=== PATIENT | female | born 1955 | race Caucasian/White ===

== ENCOUNTER → 2016-08-15 | Outpatient (CLI) | payer OTHER ==
[~2016-08-15] MED LIST: ADVAIR 100-501 EACH INH; AMITRIPTYLINE H25 M2 PO; BYSTOLIC10 MG PO; ERGOCALCIF50000 UNIT PO; FLEXERIL PO; MOBIC7.5 MG PO; NORCO 10-325 T1 EACH PO; NORVASC10 MG PO; OCUVITE EYE +1 EACH PO; PRAVACHOL20 MG PO; PROAIR HFA8.5 GM INH; SAVELLA50 MG PO; SINGULAIR 10 MG10 M1 PO; TRAMADOL 50 MG50 MG PO; UNICOMPLEX M TA1 TA1 PO; VESICARE10 M1 PO; XOPENEX HF1 UDINHALE IH
== END ==
LOC: RAD 13:57
DX: M25.552 Pain in left hip (principal)

== ENCOUNTER → 2016-10-12 | Outpatient (CLI) | payer OTHER | LOC: HYPER 07:17 | DX: I89.0 Lymphedema, not elsewhere classified (principal); I10 Essential (primary) hypertension; E78.00 Pure hypercholesterolemia, unspecified; M19.90 Unspecified osteoarthritis, unspecified site; M81.0 Age-related osteoporosis without current pathological fracture; Z86.73 Personal history of transient ischemic attack (TIA), and cerebral infarction without residual deficits; G43.909 Migraine, unspecified, not intractable, without status migrainosus; J45.909 Unspecified asthma, uncomplicated; Z96.653 Presence of artificial knee joint, bilateral ==

== ENCOUNTER → 2016-10-19 | Outpatient (CLI) | payer OTHER | LOC: HYPER 07:04 | DX: I89.0 Lymphedema, not elsewhere classified (principal); I10 Essential (primary) hypertension; E78.00 Pure hypercholesterolemia, unspecified; M19.90 Unspecified osteoarthritis, unspecified site; J45.909 Unspecified asthma, uncomplicated; M81.0 Age-related osteoporosis without current pathological fracture; G43.909 Migraine, unspecified, not intractable, without status migrainosus; Z86.73 Personal history of transient ischemic attack (TIA), and cerebral infarction without residual deficits; Z96.653 Presence of artificial knee joint, bilateral ==

== ENCOUNTER → 2016-10-23 | Outpatient (CLI) | payer OTHER ==
--- NOTE | ~2016-10-23 | EKG ---
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
[2016-10-23 10:29] LABS: ABSOLUTE NEUTROPHILS 4.8 thou/uL (1.4-8.2); BASOPHILS 1.4 % (0.0-2.0); HEMOGLOBIN 13.4 gm/dL (12.0-15.0); LYMPHOCYTES 22.1 % (24.0-44.0); MCH 31.2 pg (26.0-34.0); MCHC 33.5 g/dL (28.0-37.0); MCV 93.1 fL (80.0-100.0); MONOCYTES 6.9 % (1.0-8.0); PLATELET COUNT 254 thou/uL (150-400); POLYS 62.6 % (36.0-66.0); RDW 14.9 % (10.5-14.5); WBC 7.7 thou/uL (4.0-11.0)
[2016-10-23 10:31] LABS: MANUAL DIFF NO
[2016-10-23 10:48] LABS: ALBUMIN 3.6 g/dL (3.4-5.0); CALCIUM 9.4 mg/dL (8.5-10.1); CREATININE 1.1 mg/dL (0.6-1.0); TOTAL BILIRUBIN 0.8 mg/dL (<0.1-1.0); TOTAL PROTEIN 7.3 g/dL (6.4-8.2)
== END ==
LOC: CV 07:34
PROVIDERS: Obstetrics & Gynecology Gynecologic Oncology
DX: J18.9 Pneumonia, unspecified organism (principal); R19.00 Intra-abdominal and pelvic swelling, mass and lump, unspecified site; M81.0 Age-related osteoporosis without current pathological fracture

== ENCOUNTER → 2016-10-26 | Outpatient (CLI) | payer OTHER | LOC: HYPER 07:06 | DX: I89.0 Lymphedema, not elsewhere classified (principal); I10 Essential (primary) hypertension; E78.00 Pure hypercholesterolemia, unspecified; M19.90 Unspecified osteoarthritis, unspecified site; J45.909 Unspecified asthma, uncomplicated; M81.0 Age-related osteoporosis without current pathological fracture; G43.909 Migraine, unspecified, not intractable, without status migrainosus; Z86.73 Personal history of transient ischemic attack (TIA), and cerebral infarction without residual deficits ==

== ENCOUNTER → 2016-11-16 | Outpatient (CLI) | payer OTHER | LOC: HYPER 07:12 | DX: I89.0 Lymphedema, not elsewhere classified (principal); R60.9 Edema, unspecified; I10 Essential (primary) hypertension; E78.00 Pure hypercholesterolemia, unspecified; M19.90 Unspecified osteoarthritis, unspecified site; J45.909 Unspecified asthma, uncomplicated; M81.0 Age-related osteoporosis without current pathological fracture; G43.909 Migraine, unspecified, not intractable, without status migrainosus; Z86.73 Personal history of transient ischemic attack (TIA), and cerebral infarction without residual deficits; Z96.653 Presence of artificial knee joint, bilateral ==

== ENCOUNTER → 2016-12-21 | Outpatient (CLI) | payer OTHER | LOC: HYPER 07:10 | DX: I89.0 Lymphedema, not elsewhere classified (principal); R60.9 Edema, unspecified; I10 Essential (primary) hypertension; E78.00 Pure hypercholesterolemia, unspecified; M19.90 Unspecified osteoarthritis, unspecified site; J45.909 Unspecified asthma, uncomplicated; Z86.73 Personal history of transient ischemic attack (TIA), and cerebral infarction without residual deficits ==

== ENCOUNTER → 2016-12-25 | Outpatient (CLI) | payer OTHER ==
--- NOTE | ~2016-12-25 | EKG ---
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 : 1955 Requested By: Avelino Sanchez Order Number: [id number] MD: Bladimir Morales Measurements Intervals [place] Rate: 56 P: 47 ID: 189 QRS: 51 QRSD: 132 T: 42 QT: 514 QTc: 497 Interpretive Statements Sinus rhythm IVCD, consider atypical RBBB Compared to ECG 10/23/2016 09:33:45 No significant changes Electronically Signed On 12-26-2016 8:41:26 CDT by Bladimir Morales [email or web address] <ELECTRONICALLY SIGNED> By: Bladimir Morales MD, [facility] 12/26/16 0841 1235 1235 Bladimir Morales MD, [facility] /EPI
[2016-12-25 12:13] LABS: ABSOLUTE NEUTROPHILS 4.9 thou/uL (1.4-8.2); BASOPHILS 1.1 % (0.0-2.0); EOSINOPHILS 6.7 % (0.0-3.0); HEMATOCRIT 38.9 % (37.0-47.0); HEMOGLOBIN 13.3 gm/dL (12.0-15.0); LYMPHOCYTES 22.4 % (24.0-44.0); MCH 32.2 pg (26.0-34.0); MCHC 34.1 g/dL (28.0-37.0); MCV 94.3 fL (80.0-100.0); MONOCYTES 5.6 % (1.0-8.0); PLATELET COUNT 231 thou/uL (150-400); POLYS 64.2 % (36.0-66.0); RBC 4.12 mil/uL (4.20-5.00); RDW 14.4 % (10.5-14.5); WBC 7.6 thou/uL (4.0-11.0)
[2016-12-25 12:14] LABS: MANUAL DIFF NO
[2016-12-25 12:21] LABS: CALCIUM 9.5 mg/dL (8.5-10.1); POTASSIUM 4.2 mmol/L (3.5-5.1)
[2016-12-25 12:29] LABS: ALBUMIN 3.8 g/dL (3.4-5.0); TOTAL BILIRUBIN 0.7 mg/dL (<0.1-1.0); TOTAL PROTEIN 7.5 g/dL (6.4-8.2)
== END ==
LOC: RAD 11:17
PROVIDERS: Surgery
DX: I10 Essential (primary) hypertension (principal); E66.01 Morbid (severe) obesity due to excess calories

== ENCOUNTER → 2017-01-09 | Outpatient (CLI) | payer OTHER | LOC: HYPER 07:09 | DX: I89.0 Lymphedema, not elsewhere classified (principal); I10 Essential (primary) hypertension; E78.00 Pure hypercholesterolemia, unspecified; M19.90 Unspecified osteoarthritis, unspecified site; J45.909 Unspecified asthma, uncomplicated; M81.0 Age-related osteoporosis without current pathological fracture; G43.909 Migraine, unspecified, not intractable, without status migrainosus; Z86.73 Personal history of transient ischemic attack (TIA), and cerebral infarction without residual deficits; Z96.653 Presence of artificial knee joint, bilateral ==

== ENCOUNTER 2017-01-30 07:20 | Day surgery (SDC) | payer OTHER ==
[~2017-01-30] VITALS: Ht 172.7 cm; Wt 152.9 kg
--- NOTE | ~2017-01-30 | S ---
[facility] [place] [address] SURGICAL PATH RPT PROCEDURE Name: LATASHA ESPINO Room #: DEP [facility] M.R.#: [id number] Admission: 01/30/17 Date of : 59 Discharge: 01/31/17 Report #: [id number] Path Case #: [id number] PATHOLOGY REPORT COLLECTION DATE: 01/30/2017 RECEIVED DATE: 01/30/2017 SUBMITTING PHYS: Dr. Avelino Sanchez OTHER PHYS: Dr. Marvin Toribio SPECIMEN(S) RECEIVED: A.Scalp mass anterior crown B.Scalp mass posterior crown C.Sleeve gastrectomy * * * * * * * * * * * * FINAL DIAGNOSIS: A. 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 B. 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 C. Stomach, partial sleeve gastrectomy: - No significant diagnostic abnormality is present. (IUV:db; 02/01/2017) PATHOLOGIST: Leslie Leslie M.D. REPORT ELECTRONICALLY SIGNED BY: Leslie Leslie M.D. DATE/TIME: 02/01/2017 16:27 * * * * * * * * * * * * GROSS PATHOLOGY: A. The specimen is received in formalin labeled "Latasha Espino, scalp mass anterior crown". Received is a segment of white-sheehan, firm capsular tissue measuring 2.0 x 1.6 x 1.2 cm in greatest dimensions. The surgical margin is inked. Sectioning reveals waxy to slightly chalky cut surfaces throughout. The specimen is submitted representatively in cassette A1. B. The specimen is received in formalin labeled "Latasha Espino, scalp mass posterior crown". Received is a segment of white-sheehan, firm capsular tissue measuring 1.7 x 1.7 x 1.5 cm in greatest dimensions. The surgical margin is inked. Sectioning reveals white-sheehan, waxy to chalky cut surfaces throughout. The specimen is submitted representatively in cassette B1. C. The specimen is received in formalin, labeled "Latasha Espino, [address] [address] SURGICAL PATH RPT PROCEDURE Name: LATASHA ESPINO Room #: DEP [facility]..#: [id number] Admission: 01/30/17 Date of : 59 Discharge: 01/31/17 Report #: [id number] Path Case #: [id number] gastric sleeve". Received is a partial gastrectomy specimen with a stapled margin of resection measuring 24.8 x 7.9 x 3.7 cm in greatest dimensions. The serosal surface is pink-sheehan to pink-redman, smooth and glistening in appearance. Opening the specimen reveals a light sheehan to redman-sheehan, granular-appearing mucosa with normal architectural folds. Several possible polyps are present ranging in size from 0.1 2 1.1 cm in maximum dimensions. The specimen is submitted representatively in cassettes C1 through C3, to include architectural representative sections of the aforementioned polyps. (CAA; 01/31/2017) CLINICAL HISTORY: Morbid obesity, scalp mass 2 INITIAL CPT CODE(S): A; 31753 B; 94139 C; 04793 Professional services performed by [facility] at [facility] [address] [place] [address] Technical services performed by [facility] at [address] [place] [address], [address], [place] [address]. [facility] [address] [place] [address] PHONE: [phone] DIRECTOR: Darrin Frank M.D. * * * END OF REPORT * * *
--- NOTE | ~2017-01-30 | EKG ---
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 : 1955 Requested By: Thaddeus Hopper Order Number: [id number] MD: Bladimir Morales Measurements Intervals [place] Rate: 72 P: 57 TN: 194 QRS: 37 QRSD: 140 T: 30 QT: 485 QTc: 531 Interpretive Statements Sinus rhythm Nonspecific intraventricular conduction delay Compared to ECG 12/25/2016 12:35:48 No significant changes Electronically Signed On 01-30-2017 18:14:00 CDT by Bladimir Morales [email or web address] <ELECTRONICALLY SIGNED> By: Bladimir Morales MD, [facility] 01/30/17 1814 1200 1200 Bladimir Morales MD, [facility] /EPI
[~2017-01-30 07:20] MED LIST changes: +ADVAIR HFA 45MC1 AER INH; +BENADRYL25 MG PO; +CALCIUM 500 +1 EAC5 PO; +NEURONTIN 300300 M1 PO; +NEXIUM40 MG PO; +VENTOLIN HFA 1818 GM INH; +VITAMIN D-32000 UNIT PO
[2017-01-30 07:55] VITALS: BP 134/67
[2017-01-30 17:07] VITALS: BP 150/71
[2017-01-30 19:37] VITALS: BP 154/73
[2017-01-30 20:24] VITALS: BP 158/67
[2017-01-31 00:20] VITALS: BP 132/59
[2017-01-31 04:36] LABS: HEMATOCRIT 39.5 % (37.0-47.0); HEMOGLOBIN 13.1 gm/dL (12.0-15.0); MCH 31.8 pg (26.0-34.0); MCHC 33.3 g/dL (28.0-37.0); MCV 95.6 fL (80.0-100.0); PLATELET COUNT 254 thou/uL (150-400); RBC 4.13 mil/uL (4.20-5.00); RDW 14.2 % (10.5-14.5); WBC 11.5 thou/uL (4.0-11.0)
[2017-01-31 04:40] VITALS: BP 133/62
[2017-01-31 04:44] LABS: MANUAL DIFF YES
[2017-01-31 04:45] LABS: CALCIUM 8.7 mg/dL (8.5-10.1); CREATININE 0.9 mg/dL (0.6-1.0); POTASSIUM 4.1 mmol/L (3.5-5.1)
[2017-01-31 05:22] LABS: TOTAL CELL COUNT 100
[2017-01-31 05:23] LABS: LARGE PLATELETS FEW
[2017-01-31] MEDS ORDERED: HYDROCODONE-ACE15 ML PO (11:04)
[2017-01-31 12:46] VITALS: BP 133/62
== END 2017-01-31 14:01 | disposition home or self-care (01) ==
LOC: 5S 07:20 → OR 07:20 → TBA 07:20 → 5S 10:25 → GI 11:21 → EDSTATUS 15:39 → OR 15:42
PROVIDERS: Surgery
DX: E66.01 Morbid (severe) obesity due to excess calories (principal); D23.4 Other benign neoplasm of skin of scalp and neck; I10 Essential (primary) hypertension; M19.90 Unspecified osteoarthritis, unspecified site; I42.9 Cardiomyopathy, unspecified; M79.7 Fibromyalgia; Z68.27 Body mass index [BMI] 27.0-27.9, adult; Z88.8 Allergy status to other drugs, medicaments and biological substances; Z79.899 Other long term (current) drug therapy; Z98.890 Other specified postprocedural states
CPT/HCPCS: 10785; 50010; 50101; 50222; 50249; 50386; 50555; 50739; 50740; 50962; 51437; 52182; 52265; 53307; 53311; 54022; 54118; 55245; 56462; 56525; 56526; 56970; 57092; 62110; 62900; 70005

== ENCOUNTER → 2017-02-20 | Outpatient (CLI) | payer OTHER ==
[~2017-02-20] MED LIST changes: +HYDROCODONE-ACE15 ML PO
== END ==
LOC: HYPER 07:04
DX: I89.0 Lymphedema, not elsewhere classified (principal); R60.9 Edema, unspecified; I10 Essential (primary) hypertension; E78.00 Pure hypercholesterolemia, unspecified; M19.90 Unspecified osteoarthritis, unspecified site; J45.909 Unspecified asthma, uncomplicated

== ENCOUNTER → 2017-03-20 | Outpatient (CLI) | payer OTHER | LOC: HYPER 07:15 | DX: I89.0 Lymphedema, not elsewhere classified (principal); I10 Essential (primary) hypertension; E78.00 Pure hypercholesterolemia, unspecified; M19.90 Unspecified osteoarthritis, unspecified site; J45.909 Unspecified asthma, uncomplicated; M81.0 Age-related osteoporosis without current pathological fracture; Z86.73 Personal history of transient ischemic attack (TIA), and cerebral infarction without residual deficits; G43.909 Migraine, unspecified, not intractable, without status migrainosus; Z96.653 Presence of artificial knee joint, bilateral ==

== ENCOUNTER → 2017-05-01 | Outpatient (CLI) | payer OTHER | LOC: HYPER 07:21 | DX: I89.0 Lymphedema, not elsewhere classified (principal); R60.9 Edema, unspecified; E78.00 Pure hypercholesterolemia, unspecified; I10 Essential (primary) hypertension; M19.90 Unspecified osteoarthritis, unspecified site; J45.909 Unspecified asthma, uncomplicated; M81.0 Age-related osteoporosis without current pathological fracture; Z86.73 Personal history of transient ischemic attack (TIA), and cerebral infarction without residual deficits ==

== ENCOUNTER 2017-12-16 16:51 | Emergency (ER) | payer OTHER ==
[~2017-12-16] VITALS: Ht 170.2 cm; Wt 101.6 kg
--- NOTE | ~2017-12-16 | EKG ---
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
[2017-12-16 17:21] LABS: ABSOLUTE NEUTROPHILS 3.2 thou/uL (1.4-8.2); BASOPHILS 0.7 % (0.0-2.0); EOSINOPHILS 2.8 % (0.0-3.0); HEMATOCRIT 40.6 % (37.0-47.0); HEMOGLOBIN 13.9 gm/dL (12.0-15.0); LYMPHOCYTES 36.9 % (24.0-44.0); MCH 31.2 pg (26.0-34.0); MCHC 34.3 g/dL (28.0-37.0); MCV 90.8 fL (80.0-100.0); MONOCYTES 5.9 % (1.0-8.0); PLATELET COUNT 260 thou/uL (150-400); POLYS 53.7 % (36.0-66.0); RBC 4.47 mil/uL (4.20-5.00); RDW 12.7 % (10.5-14.5); WBC 5.9 thou/uL (4.0-11.0)
[2017-12-16 17:35] LABS: ANION GAP 15 mmol/L (7-16); BUN 15 mg/dL (7-18); CALCIUM 9.8 mg/dL (8.5-10.1); CHLORIDE 105 mmol/L (98-107); CO2 23 mmol/L (21-32); GLUCOSE 112 mg/dL (74-106); SODIUM 143 mmol/L (136-145)
[2017-12-16 17:43] LABS: TROPONIN-I < 0.04 ng/mL (<0.06)
[2017-12-16 17:59] LABS: BE(vivo) 2.2 mmol/L (-2 to +3); HCO3 19.9 mmol/L (22.0-26.0); sO2 99.3 % (92.0-98.0)
[2017-12-16 18:00] LABS: PCO2 17.7 mmHg (35.0-45.0); pH 7.669 (7.360-7.450)
== END 2017-12-16 19:03 | disposition home or self-care (01) ==
LOC: ER 16:51
PROVIDERS: Nurse Practitioner
DX: R06.00 Dyspnea, unspecified (principal); F41.9 Anxiety disorder, unspecified; R07.89 Other chest pain; J45.909 Unspecified asthma, uncomplicated; I63.9 Cerebral infarction, unspecified; I10 Essential (primary) hypertension; E78.00 Pure hypercholesterolemia, unspecified; I42.9 Cardiomyopathy, unspecified; K21.9 Gastro-esophageal reflux disease without esophagitis; M19.90 Unspecified osteoarthritis, unspecified site; F17.210 Nicotine dependence, cigarettes, uncomplicated; Z88.6 Allergy status to analgesic agent; Z88.5 Allergy status to narcotic agent; Z88.1 Allergy status to other antibiotic agents; Z88.7 Allergy status to serum and vaccine

== ENCOUNTER 2019-01-10 02:16 | Emergency (ER) | payer OTHER ==
[~2019-01-10] VITALS: Ht 170.2 cm; Wt 93.0 kg
[2019-01-10 03:26] LABS: ABSOLUTE NEUTROPHILS 3.7 thou/uL (1.4-8.2); BASOPHILS 1.2 % (0.0-2.0); EOSINOPHILS 6.1 % (0.0-3.0); HEMATOCRIT 40.2 % (37.0-47.0); HEMOGLOBIN 13.5 gm/dL (12.0-15.0); LYMPHOCYTES 28.1 % (24.0-44.0); MCH 31.7 pg (26.0-34.0); MCHC 33.7 g/dL (28.0-37.0); MCV 94.1 fL (80.0-100.0); MONOCYTES 5.6 % (1.0-8.0); PLATELET COUNT 222 thou/uL (150-400); RBC 4.27 mil/uL (4.20-5.00); RDW 12.6 % (10.5-14.5); WBC 6.2 thou/uL (4.0-11.0)
[2019-01-10 03:32] LABS: CALCIUM 9.3 mg/dL (8.5-10.1); CREATININE 0.9 mg/dL (0.6-1.0); POTASSIUM 3.6 mmol/L (3.5-5.1)
[2019-01-10] MEDS ORDERED: AMOXICILLIN875 MG PO (05:05)
[2019-01-10 05:12] VITALS: BP 130/68
== END 2019-01-10 05:13 | disposition home or self-care (01) ==
LOC: ER 02:16
PROVIDERS: Emergency Medicine
DX: H66.91 Otitis media, unspecified, right ear (principal); H92.21 Otorrhagia, right ear; M19.90 Unspecified osteoarthritis, unspecified site; G47.30 Sleep apnea, unspecified; K21.9 Gastro-esophageal reflux disease without esophagitis; J45.909 Unspecified asthma, uncomplicated; M79.7 Fibromyalgia; I10 Essential (primary) hypertension; Z90.49 Acquired absence of other specified parts of digestive tract; Z90.710 Acquired absence of both cervix and uterus; Z87.891 Personal history of nicotine dependence; Z88.8 Allergy status to other drugs, medicaments and biological substances

== ENCOUNTER 2019-02-04 12:37 | Inpatient (IN) | payer OTHER ==
[~2019-02-04] VITALS: Ht 170.2 cm; Wt 86.6 kg
[~2019-02-04 12:37] MED LIST changes: +AMOXICILLIN875 MG PO
[2019-02-04 12:39] VITALS: BP 141/63
--- NOTE | 2019-02-04 12:51 | NUR ---
PER EMS, PT. WITH INTERMITTENT SYNCOPAL EPISODES EN ROUTE TO ER. PT. WITH INTERMITTENT SYNCOPAL EPISODES WITH ARRIVAL TO ER AND WHILE ON ER CART. DR. SCHULER BEDSIDE FOR EVALUATION
[2019-02-04 13:27] LABS: URINE BILIRUBIN NEGATIVE (Negative); URINE BLOOD NEGATIVE (Negative); URINE CLARITY CLEAR; URINE COLOR YELLOW; URINE GLUCOSE-RANDOM* NEGATIVE (Negative); URINE KETONES NEGATIVE (Negative); URINE NITRITE-REFLEX NEGATIVE (Negative); URINE PROTEIN (DIPSTICK) NEGATIVE (Negative); URINE UROBILINOGEN 0.2 E.U./dl (0.2-1.0)
[2019-02-04 13:30] LABS: URINE LEUKOCYTES-REFLEX 2+ (Negative)
[2019-02-04 13:34] LABS: AMP/METHAMP Negative (Negative); BARBITURATES Negative (Negative); BENZODIAZEPINES Negative (Negative); COCAINE Negative (Negative); METHADONE Negative (Negative); OPIATES Negative (Negative); PCP Negative (Negative)
[2019-02-04 13:36] LABS: ABSOLUTE NEUTROPHILS 2.5 thou/uL (1.4-8.2); BASOPHILS 2.1 % (0.0-2.0); EOSINOPHILS 5.2 % (0.0-3.0); HEMATOCRIT 39.9 % (37.0-47.0); HEMOGLOBIN 13.5 gm/dL (12.0-15.0); LYMPHOCYTES 34.7 % (24.0-44.0); MCH 31.6 pg (26.0-34.0); MCHC 33.9 g/dL (28.0-37.0); MCV 93.4 fL (80.0-100.0); MONOCYTES 7.4 % (1.0-8.0); POLYS 50.6 % (36.0-66.0); RBC 4.27 mil/uL (4.20-5.00)
[2019-02-04 13:37] LABS: CASTS None Seen /LPF (None Seen); SQUAMOUS 0-3 Few /LPF (0-3)
[2019-02-04 13:38] LABS: BACTERIA-REFLEX None Seen /HPF (None Seen); CRYSTALS None Seen /LPF (None Seen); URINE RBC 0-2 Rare /HPF (0-2); URINE WBC-REFLEX 6-15 Few /HPF (0-5)
[2019-02-04 14:01] LABS: LARGE PLATELETS RARE; PLATELET COUNT 200 thou/uL (150-400)
[2019-02-04 14:11] LABS: ANION GAP 13 mmol/L (7-16); BUN 14 mg/dL (7-18); CALCIUM 9.5 mg/dL (8.5-10.1); CHLORIDE 103 mmol/L (98-107); CO2 26 mmol/L (21-32); CREATININE 0.9 mg/dL (0.6-1.0); GLUCOSE 96 mg/dL (74-106); POTASSIUM 3.4 mmol/L (3.5-5.1); SODIUM 142 mmol/L (136-145)
[2019-02-04] MEDS ORDERED: SINGULAIR 10 MG10 M1 PO (14:18)
[2019-02-04] MEDS ORDERED: CRESTOR5 MG PO (14:18)
[2019-02-04] MEDS ORDERED: NEURONTIN 300300 M1 PO (14:18)
[2019-02-04] MEDS ORDERED: VIACTIV 650 MG1 EACH PO (14:19)
[2019-02-04] MEDS ORDERED: VENTOLIN HFA 1818 GM INH (14:19)
[2019-02-04] MEDS ORDERED: BENADRYL25 MG PO (14:20)
[2019-02-04] MEDS ORDERED: VITAMIN B-125000 MC2 PO (14:20)
[2019-02-04] MEDS ORDERED: VITAMIN D-32000 UNIT PO (14:21)
[2019-02-04] MEDS ORDERED: CENTRUM SILVER1 EAC4 PO (14:21)
[2019-02-04] MEDS ORDERED: KLOR-CON 1010 MEQ PO (14:21)
[2019-02-04 14:22] LABS: ALBUMIN 4.1 g/dL (3.4-5.0); MAGNESIUM 2.2 mg/dL (1.8-2.4); SGOT 73 U/L (15-37); SGPT 109 U/L (30-65); TOTAL BILIRUBIN 0.8 mg/dL (<0.1-1.0); TOTAL PROTEIN 7.2 g/dL (6.4-8.2); TROPONIN-I <0.06 ng/mL (<0.06)
[2019-02-04] MEDS ORDERED: VISION FORMULA1 EAC1 PO (14:22)
[2019-02-04] MEDS ORDERED: BIOTIN2500 MCG PO (14:22)
[2019-02-04] MEDS ORDERED: NEXIUM40 MG PO (14:22)
--- NOTE | 2019-02-04 15:22 | NUR ---
DR. CORDOVA ORNAMENTAL RAIL INSTALLER AT BEDSIDE FOR EXAMINATION
[2019-02-04 15:23] VITALS: BP 136/55
--- NOTE | 2019-02-04 15:24 | NUR ---
ATTEMPTED TO CALL REPORT TO RECEIVING RN. WAS TOLD TO CALL BACK.
--- NOTE | 2019-02-04 15:40 | NUR ---
ATTEMPTED TO CALL REPORT A SECOND TIME. WAS TOLD RECEIVING RN WILL CALL BACK
[2019-02-04 15:50] VITALS: BP 137/58
--- NOTE | 2019-02-04 16:07 | EKG ---
[address] [address] ELECTROCARDIOGRAM REPORT Name: ARIS PICKARD Room #: 213-P ADM IN M.R.#: [id number] ������������������ Admission: 02/04/19 ������������������ Attend Phys: Mikel Toribio MD Discharge: ������������������ Date of : 59 Report #: [id number] ����������������������������������������������������������������� [id number] THIS REPORT FOR: //name// 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 : 1955 Requested By: Maximino Mesa Order Number: [id number] MD: Apollo Bettencourt Measurements Intervals [place] Rate: 45 P: 71 MA: 183 QRS: 43 QRSD: 131 T: 35 QT: 521 QTc: 451 Interpretive Statements Sinus bradycardia Right bundle branch block Compared to ECG 12/16/2017 17:57:03 Right bundle-branch block now present Sinus rhythm no longer present Intraventricular conduction delay no longer present Electronically Signed On 02-04-2019 16:07:42 CDT by Apollo Bettencourt [email or web address] ��������������������������������������������� <ELECTRONICALLY SIGNED> ���������������������������������������� By: Apollo Bettencourt MD ��������������������������������������������� 02/04/19 1607 1242 1242 Apollo Betetncourt MD /EPI
[2019-02-04 16:43] VITALS: BP 145/57
[2019-02-04 16:46] VITALS: BP 159/67
--- NOTE | 2019-02-04 18:34 | NUR ---
RECEIVED FROM ER VSS HR 35-55 SB, BP STABLE PT HAD ONE EPISODE SYNCOPE DURING INTAKE BP LY 145/57, HR 40, RAISE HEAD 30 % HR 42, BP 159/67, EPISODE LASTED 1 MINUTE, PT SPONTANEOUSLY CAME AROUND,. WILL CONTINUE TO MONITER AND CARE FOR PTPER PLAN OF CARE
[2019-02-04 19:53] VITALS: BP 132/66
--- NOTE | 2019-02-04 21:28 | NUR ---
ASSUMED PT CARE AT 1900 WITH NO SIGN OF DISTRESS NOTED IN PT . PT IS ALERT AND ORIENTED. ASSESSMENT CHARTED AND COMPLETED. SCHEDULED MEDS ADMINISTERED TO PT. DENIES ANY FURTHER NEEDS, PT REQUESTS FOR SLEEPING PILL. TRANSFER ORDERS PLACED. PT IS TRANSFERED TO [facility] AT 2114.
[2019-02-05] VITALS (25 sets, daily range): BP systolic 107–150; BP diastolic 44–95
--- NOTE | 2019-02-05 05:35 | NUR ---
ASSUMED PT CARE AT 1900. PT IS ALERT AND ORIENTED WITH SYNCOPAL EPISODES. PT IS ADMITTED WITH SINUS BRADYCARDIA. PT IS HAVING SYNCOPAL EPISODES. PT IS LAID FLAT ON THE BED. NO FAMILY AT BEDSIDE. ASSESSMENT COMPLETED AND DOCUMENTED. SCHEDULED MEDS ADMINISTERED TO PT. PT IS NPO AFTER MN FOR PACEKAKER PLACEMENT, PT VERBALIZES UNDERSTANDING. DENIES ANY FURTHER NEEDS AT THIS TIME.
--- NOTE | 2019-02-05 09:12 | NUR ---
report received from ALEXEI Paez. pt coming from mri, then received/transferred to icu rm # [id number]. exercise equipment repair technician present and setting pt up for eeg. see assessment for details. states that she is very tired and has become progressively more tired since each "episode" she has experienced. sb-rate 37.
--- NOTE | 2019-02-05 09:29 | NUR ---
PATIENT CARE ASSUMED, ASSESSMENT CHARTED, VSS, ALERT AND ORIENTED X 4 BETWEEN SYNCOPAL EPISODES. PATIENT PASSES OUT WHEN HEAD OF BED RAISED, MRI ORDERED, DR. CORDOVA ORDER TO MOVE PATIENT TO ICU. REPORT GIVEN TO AARON.
--- NOTE | 2019-02-05 16:14 | NUR ---
head of bed raised @ 3 inches, then pt became less responsive, then unresponsive to sternal rub. sb with pulse palpated-47, bp 139/59, rr-10, kr81-802%. both eyes slowly deviated to the right, then to the left. pupils 4 and brisk. she began to wake up, squeezed hands, spoke very softly. nihss performed, see documentation. pt stated she totally blacked out, then she was awake however initially unable to move, then gained ability to move.
--- NOTE | 2019-02-05 16:17 | NUR ---
CM ASSESSMENT: CASE OPENED FOR DC PLANNING. CLINICAL INFO REVIEWED. PT ADMITS AFTER MULTIPLE SYNCOPAL EPISODES AND IS IN PROCESS OF EVAL BY CASRDIOLOGY, SOW MANAGER AND NEUROLOGIST FOR ETIOLOGY OF EPISODES. MET WITHPT WHO IS ALERT AND ORIETNED X4. PT LIVES WITH HER DTR AND FAMILY IN HOUSE. INDEPENDENT WITH ADLS AND HELPS WITH IADLS, DRIVES. HAS CANE AND WALKER AVAILABLE. USES CPAP AT [facility]. PCP IS [facility]. RECORDS NOTE PREVIOUS HOME HEALTH FROM [facility] BUT PT STATES THEY NEVER STARTED CARE AND WOULD LIKELY WANT TO USE A DIFFERENT HH AGENCY IF NEEDED. DC PLAN HOME WITH FAMILY LIKELY. CM AVAILABLE TO ASSISTIWTH CCORDINATION OF ANY DC NEEDS.
--- NOTE | 2019-02-05 16:41 | NUR ---
paged dr. anne ([facility]) neurology regarding eeg results.
--- NOTE | 2019-02-05 20:14 | HC ---
[facility] [place] [address] CONSULTATION Name: ARIS PICKARD Room #: 245-P ADM IN M.R.#: [id number] Admission: 02/04/19 ������������������ Attend Phys: Mikel Toribio MD Discharge: ������������������ Date of : 59 Report #: [id number] THIS REPORT FOR: //name// CC: Mikel Toribio DATE OF SERVICE: 02/05/2019 HISTORY OF PRESENT ILLNESS: This is a 63-year-old female patient who was evaluated by me for any neurological etiology for the patient's episode. I reviewed the notes from Dr. Toribio and I reviewed the note from Cardiology. The patient provides some history, but she talks very softly. This patient has a history, where she feels dizzy. She knows it is going to come. She has time to sit down and prevent any injury. She has associated chest pain. She has associated respiratory difficulty. No seizure activity has been noticed. Review of system indicates readjustment of her antihypertensive. She has a history of cardiac problems of hypertension, hyperlipidemia, and bradycardia; gastric bypass surgery in the past; obstructive sleep apnea. That was her relevant 14-point review of system. PAST MEDICAL HISTORY: She said she was sometime diagnosed with anxiety, but she is not certain about that, but she does not take any medication on a regular basis. She was prescribed some medication, but she rarely takes it. FAMILY HISTORY: Noncontributory. REVIEW OF SYSTEMS: According to the record is also positive for tonsillectomy, cholecystectomy, hysterectomy, knee replacement, some question of stroke, vertigo, sleep apnea, osteoarthritis, etc. She also has fatty liver. SOCIAL HISTORY: She does not abuse alcohol. PHYSICAL EXAMINATION: NEUROLOGIC: Pretty difficult. She talks very slowly, but she is able to express herself and she was able to describe me her symptoms. She does not know what month it is, she could not tell me the date. CARDIAC: Has indicated bradycardia. RESPIRATORY: Appear unremarkable. VITAL SIGNS: Indicate a blood pressure of 127/62, respiration is 13, pulse rate has gone into 30s in this patient. IMPRESSION: It is unlikely that this patient's symptoms are because of neurological etiology. She needs to be worked up for systemic etiologies including cardiopulmonary etiology. However, it is desirable to rule out neurological etiology further by doing further testing as has already been ordered. I will look at those testing and if those testing shows some abnormality, we will proceed accordingly, but from descriptions, the systemic [facility] [address] [place] [address] CONSULTATION Name: ARIS PICKARD Room #: 245-P ADM IN M.R.#: [id number] Admission: 02/04/19 ������������������ Attend Phys: Mikel Toribio MD Discharge: ������������������ Date of : 59 Report #: [id number] and non-neurological etiology are much more likely and I think the emphasis should be to evaluate that further. We will look at neurological testing and follow up tomorrow. addendum. This addendum is being added at the time of signing this note. Multiple things were addressed since dictating this note. I talked to Dr. Toribio and nurses multiple times. This patient continued to have the spells. I reexamine her this evening and she feels much better. Her voices much better. Her MRI was reviewed and was unremarkable. Her EEG showed no seizure activity. I was going to do an MRA but I was called and they indicated that she just had a CT angiogram of the head and neck. I reviewed the notes. Looks like CT angiogram was done last month. She is pretty bradycardic but as I understand from Dr. Toribio cardiology does not think that explains her symptoms. Neurologically the next step will be to get video monitored EEG done and get an evaluation by epileptologist. For that the nurses tell me that they are in the process of getting her transferred to [facility]. That's where she will prefer to go. I have given my cell phone number to the nurses and I will be happy to talk to [facility] about the neurological aspect. I will defer further evaluation and management for her bradycardia to cardiology and Dr. Toribio. If she is still here might do an MRA of the [place] to complete the workup because CT angiogram was last month. However there does not appear to be any neurological etiology for the patient's symptoms for bradycardia on MRI. more than 50 minutes of time was spent taking care of this patient today and majority of that time was spent counseling and coordinating the care. ��������������������������������������������� <ELECTRONICALLY SIGNED> ���������������������������������������� By: Sandoval Hankins MD ��������������������������������������������� 02/05/192013 1243 1314 Sandoval Hankins MD /nt
--- NOTE | 2019-02-05 21:23 | NUR ---
Dr. Toribio called to informed us that [facility] do not have a bed at the moment and unable to accept this patient. Physician is aware of pt status and condition. Dr. Toribio will continue transfer talks with ILYA perdomo in the AM. continue to monitor.
[2019-02-06] VITALS (46 sets, daily range): BP systolic 105–187; BP diastolic 45–78
--- NOTE | 2019-02-06 11:21 | NUR ---
0730-Pt had syncope episode while she was talking to this nurse @0735 for 2 min. Pt was unresponsive during the episode. Pt's eyelid was moving while she closed her eyes. Pt could answer all questions appropriately after her consciousness came back. 0823-Episode again. Eye lid blinking, carotid area movement as like pt was swallowing something. Pt even followed commands of sqeezing this nurse's finger. The episode lasted for 5 min. Pt woke up briefly then had syncope episode for 2min. BP was 123/54. HR 40S. RR 11. sPO2 97% 1108-Episode x1 for about 9 min. Pt could not gain the consciousness completely at this time. Took longer to answer questions correctly. Bp was elevated 151/71. HR 36.RR 10.
--- NOTE | 2019-02-06 13:42 | 2DMMODE ---
[facility] [place] [address] 2 D/M-MODE ECHOCARDIOGRAM Name: ARIS PICKARD Room #: 245-P ADM IN M.R.#: [id number] ������������� Admission: 02/04/19 ������������� Attend Phys: Mikel Toribio, Discharge: ��� ������������� ��� Date of : 59 Date of Service: 02/06/19 1341 �� Report #: [id number] �������� ��������������������������������������������[id number] THIS REPORT FOR: //name// APPROVED REPORT Study performed: 02/06/2019 12:50:26 EXAM: Comprehensive 2D, Doppler, and color-flow Echocardiogram Patient Location: ICU Room #: [facility] Status: routine BSA: 1.98 HR: 39 bpm BP: 152/63 mmHg Rhythm: NSR/Bradycardia Other Information Study Quality: Good/no patient cooperation. Patient passed out for around 10mins. Indications Syncope Hx: NISCM, Bradycardia, HTN, HLP, CVA. 2D Dimensions RVDd: 37.89 mm IVSd: 8.88 (7-11mm) LVOT Diam: 19.62 (18-24mm) LVDd: 55.42 mm PWd: 9.80 (7-11mm) LVDs: 37.32 (25-40mm) Aortic Root: 30.70 mm Volumes Left Atrial Volume (Systole) Single Plane 4CH: 77.24 mL Single Plane 2CH: 77.91 mL LA ESV Index: 42.00 mL/m2 Aortic Valve AoV Peak Mark.: 1.72 m/s AO Peak Gr.: 11.86 mmHg LVOT Max P.49 mmHg LVOT Max V: 1.17 m/s JUAN Vmax: 2.06 cm2 Mitral Valve E/A Ratio: 1.[address] [facility] [address] [place] [address] 2 D/M-MODE ECHOCARDIOGRAM Name: ARIS PICKARD Room #: 245-P [facility] IN ..#: [id number] ������������� Admission: 02/04/19 ������������� Attend Phys: Mikel Toribio, Discharge: ��� ������������� ��� Date of : 59 Date of Service: 02/06/19 1341 �� Report #: [id number] �������� ��������������������������������������������[id number] MV Decel. Time: 153.81 ms MV E Max Mark.: 0.87 m/s MV A Mark.: 0.67 m/s MV PHT: 44.60 ms IVRT: 69.20 ms Pulmonary Valve PV Peak Mark.: 1.02 m/s PV Peak Gr.: 4.15 mmHg Pulmonary Vein P Vein S: 0.65 m/s P Vein A: 0.23 m/s P Vein D: 0.46 m/s P Vein A Dur.: 152.2 msec P Vein S/D Ratio: 1.41 Tricuspid Valve TR Peak Mark.: 2.51 m/s RAP Estimate: 10.00 mmHg TR Peak Gr.: 25.23 mmHg PA Pressure: 35.00 mmHg Left Ventricle The left ventricle is normal size. There is normal LV segmental wall motion. There is normal left ventricular wall thickness. Left ventricular systolic function is normal. LVEF is 55%. The left ventricular diastolic function is normal. Right Ventricle The right ventricle is normal size. The right ventricular systolic function is normal. Atria Left atrium is moderately dilated. Right atrium is mildly dilated. Aortic Valve Aortic valve is trileaflet. Trace to mild aortic regurgitation. There is no aortic valvular stenosis. Mitral Valve The mitral valve is normal in structure. Tace to mild mitral regurgitation. Tricuspid Valve The tricuspid valve is normal in structure. Mild tricuspid regurgitation. Estimated PAP is 35mmHg. Pulmonic Valve [address] [address] 2 D/M-MODE ECHOCARDIOGRAM Name: NEERAJARIS Room #: 245-P [facility] IN M.R.#: [id number] ������������� Admission: 02/04/19 ������������� Attend Phys: Mikel Toribio, Discharge: ��� ������������� ��� Date of : 59 Date of Service: 02/06/19 1341 �� Report #: [id number] �������� ��������������������������������������������[id number] The pulmonary valve is normal in structure. Trace pulmonic regurgitation. Great Vessels The aortic root is normal in size. The ascending aorta is normal in size. IVC is dilated and collapses <50% with inspiration. Pericardium There is no pericardial effusion. <Conclusion> The left ventricle is normal size. LVEF is 55%. Left atrium is moderately dilated. Right atrium is mildly dilated. Aortic valve is trileaflet. Trace to mild aortic regurgitation. The mitral valve is normal in structure. Tace to mild mitral regurgitation. The tricuspid valve is normal in structure. Mild tricuspid regurgitation. Estimated PAP is 35mmHg. The pulmonary valve is normal in structure. Trace pulmonic regurgitation. There is no pericardial effusion. ��������������������������������������������� <ELECTRONICALLY SIGNED> ���������������������������������������� By: Dorian Prajapati MD ��������������������������������������������� 02/06/19 1341 1341 1341 Dorian Prajapati MD /INF
--- NOTE | 2019-02-06 14:26 | NUR ---
Pt had 5 more times of syncope episodes 3 to 10 min length from 1156 to 1352. Each time bp was elevated. The longer the episode lasted, the longer time pt took to regain her consciousness.
--- NOTE | 2019-02-06 16:05 | NUR ---
WORKING ON TRANSFER TO HOSPTIAL WITH EPILEPTOLOGIST ANAKy 24 HR EEG VIDEO MONITORING. REFERRALS TO [facility], [facility] AND [facility]. [facility] CALLED WITH BED AT [address]. [address] [facility] AND NO BED AT 1540. SPOKE WITH PT AND HER DTR AND BOTH AGREEABLE TO [facility] TRANSFER TODAY. RADIOLOGY UPLOADED TO [employer] FOR [facility], CHART COPIED, TRANSFER FORM COMPLETED AND COPY IN [facility] CHART AND COPIED CHART TO [facility] TRANSPORT TIME 1715 OR SOONER IF TEAM BECOMES AVAILABLE. 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
[2019-02-06] MEDS ORDERED: MIDODRINE HCL 55 M1 PO (16:13)
--- NOTE | 2019-02-06 18:23 | NUR ---
1330-ECHO was done at bedside. 1645-Report was given to RNNatali at [facility]. 1800-Ambulance crews came to unit. Pt had x 2 episodes of syncope while she was wrapped up from lines. 1810-Pt left unit via stretcher. Pt's belongings were taken by the crew w/ yellow envelops, which was enclosed with H&P, labs, medications, MRI results.
--- NOTE | 2019-02-08 14:36 | EEG ---
[facility] [place] [address] ELECTROENCEPHALOGRAM Name: ARIS PICKARD Room #: 245-P DIS IN M.R.#: [id number] ������������������ Admission: 02/04/19 ������������������ Attend Phys: Mikel Toribio MD Discharge: 02/06/19 ������������������ Date of : 59 Report #: [id number] ����������������������������������������������������������������� [id number] THIS REPORT FOR: //name// CC: Mikel Toribio DATE OF SERVICE: 02/05/2019 This patient is being evaluated for question of seizure-like activity. EEG was done by placing the electrode by standard 10-20 system of electrode placement. Both referential and sequential montages were used for recording. Background activity in this patient's EEG is about 10 Hz and 30 microvolt. The patient goes to sleep that is associated with bilaterally symmetrical sleep spindle and vertex sharp waves. Photic stimulation is unremarkable. Throughout the record, no active epileptiform activity was noticed. IMPRESSION: This patient's EEG demonstrates no active epileptiform activity. Her heart rate is slow, but that has been documented in the chart. This EEG report was discussed with Dr. Toribio, and my suggestion was to send the patient to higher level of care in a tertiary care center where an epileptologist can see her and she has a video monitored EEG put in if no systemic cause is there for the patient's symptoms. This was also discussed with the nurse and they are working on getting this patient to transferred to higher level of care where the above is available. ���������������������������������������� <ELECTRONICALLY SIGNED> ���������������������������������������� By: Sandoval Hankins MD ��������������������������������������������� 02/08/19 1436 [id number] Sandoval Hankins MD /nt
== END 2019-02-06 18:31 | disposition short-term general hospital (02) | DRG 312 ==
LOC: ER 12:37 → ICU 14:16 → EROBS 14:16 → 2N 15:59 → ICU 02-05 08:34
PROVIDERS: Emergency Medicine; ADMIT Family Medicine
DX: R55 Syncope and collapse (principal); I42.9 Cardiomyopathy, unspecified; R00.1 Bradycardia, unspecified; Z96.653 Presence of artificial knee joint, bilateral; K08.409 Partial loss of teeth, unspecified cause, unspecified class; I10 Essential (primary) hypertension; E78.00 Pure hypercholesterolemia, unspecified; J45.909 Unspecified asthma, uncomplicated; K21.9 Gastro-esophageal reflux disease without esophagitis; M19.90 Unspecified osteoarthritis, unspecified site; T80.92XA Unspecified transfusion reaction, initial encounter; F41.9 Anxiety disorder, unspecified; E78.5 Hyperlipidemia, unspecified; G47.33 Obstructive sleep apnea (adult) (pediatric); K58.9 Irritable bowel syndrome, unspecified; I89.0 Lymphedema, not elsewhere classified; Z90.49 Acquired absence of other specified parts of digestive tract; Z86.73 Personal history of transient ischemic attack (TIA), and cerebral infarction without residual deficits; Z88.6 Allergy status to analgesic agent; Z88.8 Allergy status to other drugs, medicaments and biological substances; Z87.891 Personal history of nicotine dependence
CPT/HCPCS: 10078; 10081

== ENCOUNTER 2019-09-16 11:28 | Inpatient (IN) | payer OTHER ==
[~2019-09-16] VITALS: Ht 170.2 cm; Wt 110.0 kg
[~2019-09-16 11:28] MED LIST changes: +BIOTIN2500 MCG PO; +CENTRUM SILVER1 EAC4 PO; +CRESTOR5 MG PO; +KLOR-CON 1010 MEQ PO; +MIDODRINE HCL 55 M1 PO; +VIACTIV 650 MG1 EACH PO; +VISION FORMULA1 EAC1 PO; +VITAMIN B-125000 MC2 PO
[2019-09-16 11:30] VITALS: BP 152/81
[2019-09-16 11:56] LABS: ABSOLUTE NEUTROPHILS 3.1 thou/uL (1.4-8.2); BASOPHILS 0.5 % (0.0-2.0); EOSINOPHILS 4.5 % (0.0-3.0); HEMATOCRIT 39.4 % (37.0-47.0); HEMOGLOBIN 13.1 gm/dL (12.0-15.0); LYMPHOCYTES 27.7 % (24.0-44.0); MCH 31.3 pg (26.0-34.0); MCHC 33.2 g/dL (28.0-37.0); MCV 94.3 fL (80.0-100.0); MONOCYTES 6.8 % (1.0-8.0); PLATELET COUNT 232 thou/uL (150-400); POLYS 60.5 % (36.0-66.0); RBC 4.18 mil/uL (4.20-5.00); WBC 5.1 thou/uL (4.0-11.0)
[2019-09-16 11:58] LABS: URINE BILIRUBIN NEGATIVE (Negative); URINE BLOOD NEGATIVE (Negative); URINE CLARITY CLEAR; URINE COLOR YELLOW; URINE GLUCOSE-RANDOM* NEGATIVE (Negative); URINE KETONES NEGATIVE (Negative); URINE LEUKOCYTES-REFLEX TRACE (Negative); URINE NITRITE-REFLEX NEGATIVE (Negative); URINE PROTEIN (DIPSTICK) NEGATIVE (Negative); URINE SPECIFIC GRAVITY <= 1.005 (1.005-1.035); URINE UROBILINOGEN 0.2 E.U./dl (0.2-1.0)
[2019-09-16] MEDS ORDERED: CARVEDILOL25 MG PO (12:01)
--- NOTE | 2019-09-16 12:08 | EKG ---
[facility] [place] [address] ELECTROCARDIOGRAM REPORT Name: ARIS PICKARD Room #: PRE M.R.#: [id number] Admission: Attend Phys: Discharge: Date of : 59 Report #: [id number] THIS REPORT FOR: cc: Mikel Toribio MD, Neal A. MD Couchonnal, Luis F. MD ~ THIS REPORT FOR: //name// [facility] ED Test Date: 2019-09-16 Test Time: 11:44:06 Pat Name: ARIS PICKARD Department: Room: Gender: F [employer] Tester: [facility] : 1955 Requested By: Mally Baron Order Number: [id number] : Apollo Bettencourt Measurements Intervals [place] Rate: 66 P: 64 PA: 190 QRS: 25 QRSD: 138 T: 4 QT: 425 QTc: 446 Interpretive Statements Sinus rhythm Ventricular trigeminy Right bundle branch block Baseline wander in lead(s) II,III,aVF Compared to ECG 02/04/2019 12:42:47 Ventricular premature complex(es) now present Sinus bradycardia no longer present Electronically Signed On 09-16-2019 12:07:13 OBGYN HOSPITALIST PHYSICIAN by Apollo Bettencourt [email or web address] <ELECTRONICALLY SIGNED> By: Apollo Bettencourt MD 09/16/19 1207 1144 1144 Apollo Bettencourt MD /EPI
[2019-09-16 12:09] LABS: ANION GAP 8 mmol/L (7-16); BUN 10 mg/dL (7-18); CALCIUM 9.2 mg/dL (8.5-10.1); CHLORIDE 103 mmol/L (98-107); CO2 30 mmol/L (21-32); CREATININE 0.9 mg/dL (0.6-1.0); GLUCOSE 101 mg/dL (74-106); POTASSIUM 3.3 mmol/L (3.5-5.1); SODIUM 141 mmol/L (136-145)
[2019-09-16 12:19] LABS: ALBUMIN 3.5 g/dL (3.4-5.0); SGOT 36 U/L (15-37); SGPT 35 U/L (30-65); TOTAL BILIRUBIN 0.7 mg/dL (<0.1-1.0); TROPONIN-I <0.06 ng/mL (<0.06)
--- NOTE | 2019-09-16 13:33 | NUR ---
PT USED BEDPAN VOIDED 550 CC OF MARKELL COLORED URINE IN URINAL. GIVEN CALL LIGHT DENIES ANY OTHER NEEDS
[2019-09-16 14:57] VITALS: BP 125/69
[2019-09-16 15:00] VITALS: BP 134/63
[2019-09-16 16:30] VITALS: BP 134/70
--- NOTE | 2019-09-16 17:19 | NUR ---
PT ADMITED FROM ER. ADMISSION HX AND ASSESSMENT COMPLETED. REPORT HAVING CHEST PRESSURE BUT DENIED THE NEED FOR PAIN MED. PT STATES SHE IS FEELING BETTER SINCE SHE WAS GIVEN PAIN IN THE ER. SEEN BY DR. HOOVER, AND DR. CORDOVA. ORDERS NOTED. WILL CONTINUE TO MONITOR.
[2019-09-16 20:10] VITALS: BP 123/60
[2019-09-17 04:45] VITALS: BP 113/66
--- NOTE | 2019-09-17 04:59 | NUR ---
ASSUMED PT CARE AROUND 191. PT WAS RESTING IN BED WITH NO C/O PAIN. PT DID HAVE A SYNCOPAL EPISODE FROM [id number]. PT STATED "I'M GOING OUT" PT HAD +2 RADIAL PULSES AND PEDAL PULSE. PT HAD NOTICEABLE RISE AND FALL OF CHEST. WHEN PT AROUSED BACK PT STATED "I'M TIRED. THESE WEAR ME OUT" PT VITALS WERE STABLE AND NO OTHER COMPLAINTS OR SYMPTOMS NOTED. PT WAS ABLE TO REST THRU NIGHT. WILL CONTINUE TO CLOSELY MONITOR PT.
[2019-09-17 07:18] VITALS: BP 135/65
[2019-09-17] MEDS ORDERED: METOPROLOL SUCC25 M1 PO (09:00)
--- NOTE | 2019-09-17 12:23 | 2DMMODE ---
[facility] [address] [employer] [place] [address] 2 D/M-MODE ECHOCARDIOGRAM Name: ARIS PICKARD Room #: 200-I ADM IN M.R.#: [id number] Admission: 09/16/19 Attend Phys: Mikel Toribio MD Discharge: Date of : 59 Report #: [id number] THIS REPORT FOR: cc: Mikel Toribio MD, Neal A. MD Lammoglia, Francisco J. MD ~ APPROVED REPORT Study performed: 09/17/2019 08:16:09 EXAM: Comprehensive 2D, Doppler, and color-flow Echocardiogram Patient Location: Bedside Room #: 200 Status: routine BSA: 2.19 HR: 62 bpm BP: 135/65 mmHg Rhythm: NSR Other Information Study Quality: Adequate Indications Syncope. Hx: Pacemaker, HTN, CM. 2D Dimensions RVDd: 39.08 mm IVSd: 8.14 (7-11mm) LVOT Diam: 18.41 (18-24mm) LVDd: 52.76 mm PWd: 10.18 (7-11mm) LVDs: 38.15 (25-40mm) Aortic Root: 28.27 mm IVC: 24.00 mm Volumes Left Atrial Volume (Systole) Single Plane 4CH: 100.68 mL Single Plane 2CH: 51.81 mL LA ESV Index: 35.00 mL/m2 Aortic Valve AoV Peak Mark.: 1.42 m/s AO Peak Gr.: 8.11 mmHg LVOT Max P.28 mmHg LVOT Max V: 1.03 m/s JUAN Vmax: 1.93 cm2 [facility] [address] [address] 2 D/M-MODE ECHOCARDIOGRAM Name: ARIS PICKARD Room #: 200-I [facility]#: [id number] Admission: 09/16/19 Attend Phys: Mikel Toribio, Discharge: Date of : 59 Report #: [id number] Mitral Valve E/A Ratio: 1.1 MV Decel. Time: 191.94 ms MV E Max Mark.: 1.03 m/s MV A Mark.: 0.93 m/s MV PHT: 55.66 ms IVRT: 108.42 ms Pulmonary Valve PV Peak Mark.: 0.96 m/s PV Peak Gr.: 3.66 mmHg Pulmonary Vein P Vein S: 0.47 m/s P Vein A: 0.24 m/s P Vein D: 0.36 m/s P Vein A Dur.: 124.6 msec P Vein S/D Ratio: 1.31 Tricuspid Valve TR Peak Mark.: 2.24 m/s RAP Estimate: 10.00 mmHg TR Peak Gr.: 20.00 mmHg PA Pressure: 30.00 mmHg Left Ventricle The left ventricle is normal size. There is normal LV segmental wall motion. There is normal left ventricular wall thickness. The left ventricular systolic function is normal. LVEF is 55%. Mild diastolic dysfunction is present (impaired relaxation pattern). Right Ventricle The right ventricle is normal size. The right ventricular systolic function is normal. Pacemaker lead is present in the right ventricle. Atria Left atrium is mildly dilated. The right atrium size is normal. Aortic Valve The aortic valve is normal in structure. No aortic regurgitation is present. There is no aortic valvular stenosis. Mitral Valve The mitral valve is normal in structure. Mild mitral regurgitation. No evidence of mitral valve stenosis. Tricuspid Valve The tricuspid valve is normal in structure. Estimated PAP is 30-35 mmHg. Mild tricuspid regurgitation. [facility] [address] [address] 2 D/M-MODE ECHOCARDIOGRAM Name: ARIS PICKARD Room #: 200-I ADM IN .R.#: [id number] Admission: 09/16/19 Attend Phys: Mikel Toribio, Discharge: Date of : 59 Report #: [id number] Pulmonic Valve The pulmonary valve is normal in structure. Trace pulmonic regurgitation. Great Vessels The aortic root is normal in size. Ascending aorta is not well visualized. IVC is dilated and collapses <50% with inspiration. Pericardium There is no pericardial effusion. <Conclusion> The left ventricle is normal size. LVEF is 55%. The right ventricular systolic function is normal. Pacemaker lead is present in the right ventricle. Left atrium is mildly dilated. The aortic valve is normal in structure. The mitral valve is normal in structure. Mild mitral regurgitation. The tricuspid valve is normal in structure. Estimated PAP is 30-35 mmHg. Mild tricuspid regurgitation. The pulmonary valve is normal in structure. Trace pulmonic regurgitation. There is no pericardial effusion. <ELECTRONICALLY SIGNED> By: Dorian Prajapati MD 09/17/19 1222 122 21 Dorian Prajapati MD /INF
[2019-09-17 14:42] VITALS: BP 131/69
[2019-09-17 15:28] VITALS: BP 131/69
--- NOTE | 2019-09-17 16:04 | NUR ---
ASSESSMENT CHARTED. PT ALERT AND ORIENTED. HAD NUC STRESS TEST THIS AM. SEEN BY DR. CORDOVA AND DR. HOOVER. ORDERS GIVEN TO DISCHARGE PT TO HOME. DISCHARGE INSTRUCTIONS GIVEN TO PT. PT VERBERLISED UNDERSTANDING.
== END 2019-09-17 17:38 | disposition home or self-care (01) | DRG 312 ==
LOC: ER 11:28 → EROBS 14:12 → 2N 14:12 → ENTRNSPT 09-17 17:36 → 2N 09-17 17:38
PROVIDERS: Nurse Practitioner Family; ADMIT Family Medicine
PROC: 4B02XSZ Measurement of Cardiac Pacemaker, External Approach (ICD-10-PCS; principal; 2019-09-16)
DX: R55 Syncope and collapse (principal); I47.1 Supraventricular tachycardia; I42.8 Other cardiomyopathies; Z96.653 Presence of artificial knee joint, bilateral; I10 Essential (primary) hypertension; E78.00 Pure hypercholesterolemia, unspecified; J45.909 Unspecified asthma, uncomplicated; M79.7 Fibromyalgia; K21.9 Gastro-esophageal reflux disease without esophagitis; M19.90 Unspecified osteoarthritis, unspecified site; K58.9 Irritable bowel syndrome, unspecified; I08.3 Combined rheumatic disorders of mitral, aortic and tricuspid valves; D64.9 Anemia, unspecified; Z60.2 Problems related to living alone; I49.5 Sick sinus syndrome; G62.9 Polyneuropathy, unspecified; Z90.49 Acquired absence of other specified parts of digestive tract; E66.9 Obesity, unspecified; Z95.0 Presence of cardiac pacemaker; Z90.710 Acquired absence of both cervix and uterus; Z98.1 Arthrodesis status; I69.390 Apraxia following cerebral infarction; I69.334 Monoplegia of upper limb following cerebral infarction affecting left non-dominant side; Z98.84 Bariatric surgery status; Z88.6 Allergy status to analgesic agent; Z88.8 Allergy status to other drugs, medicaments and biological substances; Z68.38 Body mass index [BMI] 38.0-38.9, adult
CPT/HCPCS: 10081

== ENCOUNTER → 2021-04-05 | Outpatient (CLI) | payer OTHER ==
[~2021-04-05] MED LIST changes: +CARVEDILOL25 MG PO; +METOPROLOL SUCC25 M1 PO
== END ==
LOC: SJCVCIMAG 07:41
PROVIDERS: ATTEND Family Medicine
DX: I07.1 Rheumatic tricuspid insufficiency (principal); R00.0 Tachycardia, unspecified; I89.0 Lymphedema, not elsewhere classified; Z95.0 Presence of cardiac pacemaker